=== PATIENT | female | born 1975 | race Caucasian/White ===

== ENCOUNTER 2016-09-07 12:29 | Emergency (ER) | payer MEDICARE ==
--- NOTE | 2016-09-07 13:39 | ER Document Report ---
ED Medical Screen (RME) - General Chief Complaint: Shoulder Pain Stated Complaint: BODY PAIN Time seen by provider: 13:38 Mode of Arrival: Ambulatory Information source: Patient TRAVEL OUTSIDE OF THE [place] IN LAST 30 DAYS: No - HPI Patient complains to provider of: BODY ACHES Onset: Other - TWO WEEKS Onset/Duration: Persistent Context: PATIENT HAS PREVIOUSLY BEEN ON LORAZEPAM 1 MG 3 TIMES A DAY. Patient states she has not taken any in the last 2 weeks. She has been trying to wean herself off of it. She has also been trying to wean herself off the Percocet 10 mg that she has been taking. She states that the pain has been so bad today that she has taken 2, 10 mg Percocet, and one 2 mg Dilaudid this morning which has not helped with the pain. she had an appointment this today with [facility] her primary care provider but she came here because she knew they would send her here for pain control anyway. Patient denies other symptoms at this time. Patient also sees Dr. Soni for pain management. Quality of pain: Achy, Throbbing Severity: Severe Pain Level: 5 Associated Symptoms: Body/muscle aches Exacerbated by: Denies Relieved by: Denies Similar symptoms previously: Yes Recently seen / treated by doctor: No - Related Data Smoking: Non-smoker Frequency of alcohol use: None Drug Abuse: None Pertinent History: LUPUS Allergies/Adverse Reactions: morphine Allergy (Verified 09/07/16 12:41) Past Medical History - General Last Menstrual Period: NA - Social History Chew tobacco use (# tins/day): No Frequency of alcohol use: None Drug Abuse: None Psychiatric Medical History: Reports: Hx Anxiety, Hx Attention Deficit Hyperactivity Disorder Past Surgical History: Reports: Hx Breast Surgery - reduction, Hx Hysterectomy - complete, Hx Orthopedic Surgery - rigth shoulder, Hx Tonsillectomy - Immunizations Hx Diphtheria, Pertussis, Tetanus Vaccination: No Physical Exam - Vital signs Vitals: Temp Pulse Resp BP Pulse Ox 97.9 F 74 18 135/86 H 98 09/07/16 12:34 09/07/16 12:34 09/07/16 12:34 09/07/16 12:34 09/07/16 12:34 Course - Vital Signs Vital signs: Temp Pulse Resp BP Pulse Ox 97.9 F 74 18 135/86 H 98 09/07/16 12:34 09/07/16 12:34 09/07/16 12:34 09/07/16 12:34 09/07/16 12:34
[2016-09-07] MEDS ORDERED: LORAZEPAM 1 MG TABLET PO ONE (13:47)
[2016-09-07] MEDS ORDERED: HYDROMORPHONE HCL INJ/PF 2 MG/ML AMPULE IM ONE (16:16)
[2016-09-07] MEDS ORDERED: ONDANSETRON HCL 8 MG TABLET PO ONE (16:17)
--- NOTE | 2016-09-07 16:34 | ER Document Report ---
ED General - General Chief Complaint: Shoulder Pain Stated Complaint: BODY PAIN Mode of Arrival: Ambulatory TRAVEL OUTSIDE OF THE [place] IN LAST 30 DAYS: No - HPI Patient complains to provider of: generalized aches Onset: Last week Onset/Duration: Persistent Quality of pain: Achy Severity: Moderate - Related Data Allergies/Adverse Reactions: morphine Allergy (Verified 09/07/16 12:41) Past Medical History - General Information source: Patient Last Menstrual Period: NA - Social History Smoking Status: Former Smoker Chew tobacco use (# tins/day): No Frequency of alcohol use: None Drug Abuse: None Family History: Reviewed & Not Pertinent Patient has suicidal ideation: No Patient has homicidal ideation: No Pulmonary Medical History: Reports: Hx Asthma Psychiatric Medical History: Reports: Hx Anxiety, Hx Attention Deficit Hyperactivity Disorder Past Surgical History: Reports: Hx Breast Surgery - reduction, Hx Hysterectomy, Hx Orthopedic Surgery - rigth shoulder, Hx Tonsillectomy - Immunizations Hx Diphtheria, Pertussis, Tetanus Vaccination: Yes Review of Systems - Review of Systems Constitutional: No symptoms reported EENT: No symptoms reported Cardiovascular: No symptoms reported Respiratory: No symptoms reported Gastrointestinal: No symptoms reported Genitourinary: No symptoms reported Female Genitourinary: No symptoms reported Musculoskeletal: No symptoms reported, Muscle pain. denies: Neck pain Skin: No symptoms reported Hematologic/Lymphatic: No symptoms reported Neurological/Psychological: No symptoms reported Physical Exam - Vital signs Vitals: Temp Pulse Resp BP Pulse Ox 97.9 F 74 18 135/86 H 98 09/07/16 12:34 09/07/16 12:34 09/07/16 12:34 09/07/16 12:34 09/07/16 12:34 Interpretation: Normal - General General appearance: Appears well, Alert - HEENT Head: Normocephalic, Atraumatic Eyes: Normal Pupils: PERRL - Respiratory Respiratory status: No respiratory distress Chest status: Nontender Breath sounds: Normal Chest palpation: Normal - Cardiovascular Rhythm: Regular Heart sounds: Normal auscultation Murmur: No - Abdominal Inspection: Normal Distension: No distension Bowel sounds: Normal Tenderness: Nontender Organomegaly: No organomegaly - Back Back: Normal, Nontender - Extremities General upper extremity: Normal inspection, Nontender, Normal color, Normal ROM , Normal temperature General lower extremity: Normal inspection, Nontender, Normal color, Normal ROM , Normal temperature, Normal weight bearing. No: Sailaja's sign - Neurological Neuro grossly intact: Yes Cognition: Normal Orientation: AAOx4 Sofia Coma Scale Eye Opening: Spontaneous Hewitt Coma Scale Verbal: Oriented Sofia Coma Scale Motor: Obeys Commands Sofia Coma Scale Total: 15 Speech: Normal Motor strength normal: LUE, RUE, LLE, RLE Sensory: Normal - Psychological Associated symptoms: Normal affect, Normal mood - Skin Skin Temperature: Warm Skin Moisture: Dry Skin Color: Normal Course - Re-evaluation Re-evalutation: 09/07/16 16:30 This is a 41-year-old female who presents to the emergency room today stating that she has bilateral shoulder generalized aching which is been ongoing for 4- 5 years. 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 She has an appointment tomorrow with her pain management doctor and is frustrated with the generalized discomfort that she is in. Patient is fairly knowledgeable about her disease state. She recognizes that she is already on significant amount of narcotics. She seems genuinely frustrated more in the nature in origin of her discomfort and is really looking more for a solution than strictly pain management. Throughout discussion in my assessment and inquired to the patient as to what was her expectation for her visit today. She was hoping to achieve some type of relief from the discomfort she recognizes that finding the long-term answers is more between her access developer and pain management doctor she has an appointment first thing in the morning. She is not seeking a prescription for pain medication. - Vital Signs Vital signs: Temp Pulse Resp BP Pulse Ox 97.9 F 74 18 135/86 H 98 09/07/16 12:34 09/07/16 12:34 09/07/16 12:34 09/07/16 12:34 09/07/16 12:34 Discharge - Discharge Clinical Impression: Muscle pain, fibromyalgia Disposition: HOME, SELF-CARE Additional Instructions: Follow-up with rheumatology 2-3 days. Follow-up with pain management doctor tomorrow morning as scheduled. Return to the emergency room for any change or worsening condition.
[2016-09-07 16:43] VITALS: BP 131/93
== END 2016-09-07 16:43 | disposition home or self-care (01) ==
LOC: ER 12:29
DX: M79.7 Fibromyalgia (principal); J45.909 Unspecified asthma, uncomplicated; Z88.5 Allergy status to narcotic agent; Z87.891 Personal history of nicotine dependence; Z79.891 Long term (current) use of opiate analgesic
CPT/HCPCS: 99283; 96372; J1170; A9270 ×2; S0119

== ENCOUNTER → 2016-11-12 | Day surgery (SDC) | payer MEDICARE | LOC: RAD 13:37 | PROVIDERS: ATTEND Orthopaedic Surgery | PROC: BP08ZZZ Plain Radiography of Right Shoulder (ICD-10-PCS; principal; 2016-11-12) | DX: R22.2 Localized swelling, mass and lump, trunk (principal); M25.511 Pain in right shoulder | CPT/HCPCS: 73222; 73040; 77002; A9576 ==

== ENCOUNTER 2016-12-16 05:16 | Day surgery (SDC) | payer MEDICARE ==
[2016-12-10 09:57] LABS: ABSOLUTE BASOPHILS # (AUTO) 0.1 10^3/uL (0.0-0.2); ABSOLUTE EOSINOPHILS # (AUTO) 0.2 10^3/uL (0.0-0.6); ABSOLUTE LYMPHOCYTES (AUTO) 3.1 10^3/uL (0.5-4.7); ABSOLUTE MONOCYTES (AUTO) 0.7 10^3/uL (0.1-1.4); ABSOLUTE NEUT (AUTO) 6.2 10^3/uL (1.7-8.2); BASOPHILS % (AUTO) 0.5 % (0-2); HEMATOCRIT 39.3 % (36.0-47.0); HEMOGLOBIN 13.2 g/dL (12.0-15.5); HGB HCT DIFFERENCE 0.3; LYMPHOCYTES % (AUTO) 30.3 % (13-45); MEAN CORPUSCULAR HGB CONC 33.7 g/dL (32.0-36.0); MEAN CORPUSCULAR VOLUME 89 fl (80-97); MONOCYTES % (AUTO) 7.1 % (3-13); RED BLOOD COUNT 4.42 10^6/uL (3.72-5.28); RED CELL DISTRIBUTION WIDTH 12.2 % (11.5-14.0); SEGMENTED NEUTROPHILS % (AUTO) 60.1 % (42-78); WHITE BLOOD COUNT 10.3 10^3/uL (4.0-10.5)
[2016-12-10 10:03] LABS: APPEARANCE,URINE SLIGHTLY-CLOUDY; BILIRUBIN,URINE NEGATIVE (NEGATIVE); GLUCOSE, URINE NEGATIVE (NEGATIVE); KETONES,URINE NEGATIVE (NEGATIVE); LEUKOCYTE ESTERASE,URINE NEGATIVE (NEGATIVE); NITRITE,URINE NEGATIVE (NEGATIVE); PROTEIN,URINE NEGATIVE (NEGATIVE); URINE SPECIFIC GRAVITY 1.013; UROBILINOGEN,URINE NEGATIVE mg/dL (<2.0)
[2016-12-10 10:24] LABS: ANION GAP 11 (5-19); BLOOD UREA NITROGEN 13 mg/dL (7-20); CALCIUM 9.2 mg/dL (8.4-10.2); CARBON DIOXIDE 30 mmol/L (22-30); CHLORIDE 100 mmol/L (98-107); GLUCOSE 90 mg/dL (75-110); POTASSIUM 3.9 mmol/L (3.6-5.0); SODIUM 141.1 mmol/L (137-145)
--- NOTE | 2016-12-10 22:27 | EKG REPORT ---
SEVERITY:- BORDERLINE ECG - SINUS RHYTHM PROBABLE LEFT ATRIAL ABNORMALITY : Confirmed by: Adina Boss MD 10-Dec-2016 22:26:40
[~2016-12-16 05:16] MED LIST: CEFAZOLIN 2 GM/D5W RTU 2 GM/50 ML RTUPB IV PRN; LACTATED RINGERS 1000 ML IV PRN; LIDOCAINE 0.5% INJ-PF (5 MG/ML) 50 ML SDV SUBCUT PRN; RINGERS SOLUTION,LACTATED 1,000 ML IV PRN
[2016-12-16] MEDS ORDERED: BUPIVACAINE HCL 0.25 % INJ/PF (2.5 MG/1 ML) 30 ML VIAL ONE (05:50)
[2016-12-16] MEDS ORDERED: EPINEPHRINE INJ/PF 1 MG/1 ML AMPULE ONE ×2 (05:50→09:39)
[2016-12-16] MEDS ORDERED: IBUPROFEN INJ 800 MG/8 ML VIAL IV ONE (07:08)
[2016-12-16] MEDS ORDERED: FENTANYL CITRATE INJ/PF 250 MCG/5 ML AMPULE ONE (07:08)
[2016-12-16] MEDS ORDERED: DEXMEDETOMIDINE INJ 80 MCG/20 ML VIAL IV ONE (07:08)
[2016-12-16] MEDS ORDERED: EPHEDRINE SULFATE INJ 50 MG/1 ML AMPULE ONE (07:08)
[2016-12-16] MEDS ORDERED: MIDAZOLAM 2 MG/2 ML INJ ONE (07:08)
[2016-12-16] MEDS ORDERED: PROPOFOL INJ 200 MG/20 ML VIAL IV ONE (07:08)
[2016-12-16] MEDS ORDERED: OXYCODONE-ACETAMINOPHEN 5-325 MG TABLET PO PRN ×2 (10:45)
[2016-12-16] MEDS ORDERED: DIPHENHYDRAMINE HCL 50 MG/ML VIAL IV PRN (10:45)
[2016-12-16] MEDS ORDERED: FENTANYL CITRATE INJ/PF 100 MCG/2 ML AMPUL IV PRN ×3 (10:45)
[2016-12-16] MEDS ORDERED: PROMETHAZINE HCL INJ 25 MG/1 ML VIAL IV PRN ×2 (10:45)
[2016-12-16] MEDS ORDERED: MEPERIDINE HCL/PF INJ 25 MG/1 ML DISP.SYRIN IV PRN (10:45)
[2016-12-16] MEDS ORDERED: ONDANSETRON HCL INJ/PF 4 MG/2 ML SDV IV PRN (10:45)
[2016-12-16] MEDS ORDERED: FENTANYL CITRATE INJ/PF 100 MCG/2 ML AMPUL ONE (11:15)
--- NOTE | 2016-12-16 11:27 | Operative Report ---
Operative Report DATE OF SURGERY: 12/16/16 PREOPERATIVE DIAGNOSIS: Right rotator cuff tear, A.C. joint arthropathy, small SLAP tear POSTOPERATIVE DIAGNOSIS: Same OPERATION: Right shoulder cystoscopy with rotator cuff repair, distal clavicle excision, open biceps tenodesis SURGEON: TENISHA COOLEY ANESTHESIA: GA COMPLICATIONS: None ESTIMATED BLOOD LOSS: 15 mL INTRAOPERATIVE FINDINGS: As above PROCEDURE: IMPLANTS: Arthrex 8 x 23 bio composite screw and one 4.75 bio composite swivel lock DESCRIPTION OF PROCEDURE: Patient was brought to the operating room placed in supine position. After successfully induced and intubated the patient patient was placed in the beachchair position the head and endotracheal tube was secured appropriately. The right shoulder was prepped and draped in a normal surgical fashion. A timeout was done identifying the right shoulder as the correct site. After inflating the glenohumeral joint with sterile saline solution an 11 blade was used to establish the posterior portal. The arthroscope was introduced and return of fluid was seen showing that we successfully penetrated the glenohumeral joint. With the use of spinal needle we're able to agustín the anterior portal and using an 11 blade able to establish anterior portal. A cannula was introduced through the anterior portal. At this point diagnostic scope was done. Have a small SLAP tear and degenerative tearing of the anchor of the long head of the biceps. The rotator cuff tear was a high-grade partial thickness supraspinatus tendon tear. I completed the tear using a 4.0mm shaver A lateral portal was established 11 blade. 4.0mm shaver was introduced and was used to prepare the tear and the frontal bone for preparation of anchor placement. Once I was satisfied with the preparation I then redirected my scope into the subacromial space. No formal bursectomy using a shaver and radio frequency ablator. Able to identify the cuff tear and the subacromial space. A percutaneous incision was then just adjacent to the acromion on the lateral aspect. Through this percutaneous hole the awl was used to prepare the hole for an anchor. [place] was percutaneously sent flushed with the bone just adjacent to the articular margin. I used a fiber tape and passed it into the posterior aspect of the cuff to added to my repair. Sutures were passed through the anterior portal for proper suture management. With the use of the scorpion and I proceeded to pass the sutures through the rotator cuff tendon with proper suture management was able to pass the strands either through percutaneous hole or the anterior portal. Once I was satisfied with placement of all my sutures I then proceeded to do my arthroscopic knots. At this point the strands were used to do our lateral row. Bicomposite show out was used and the lateral aspect of the humerus was then cleaned off with a shaver and electrocautery. Once identified once I was replacement I proceeded to use my awl to do my hole. This this point the sutures were adequately tensioned and subluxed for inserted and secured securing and increasing the footprint of the rotator cuff repair. Remaining strands were cut with the arthroscopic cutter. At this point I addressed the acromioclavicular joint. I use radio frequency ablator to expose both ends. Anterior portal I used 5.5mm barrel bur to do revision distal clavicle excision. Pictures were taken showing the space created from the resection. Final pictures were taking showing my repair. At this point fluid from the shoulder was removed camera and instruments were all removed. At this point I addressed the subpectoralis biceps tenodesis by doing a 2 inch incision adjacent to the axillary fold. Skin knife was used for the initial dissection but Bovie was used for hemostasis. Metzenbaum scissors was used to incise the muscular tendinous fascial layer. Blunt dissection with a 90 clamp and finger was used to capture the long head of the biceps which was tenotomized arthroscopically. I used a fiber loop to secure the muscular tendinous portion and 2 cm distal to that. The FiberWire strands were passed through the titanium button. I used a 4.0 mm spade tip guidepin to then drilled a balloon pilot hole in the proximal cortex of the humerus. This was removed and then the button was placed intramedullary and flipped securing the biceps into the anterior portion of the humerus. I cinched the FiberWire down and tied half is not just to secure the biceps further. FiberWire scissors was used to cut the remaining strands. At this point 0 Vicryl was used to approximate the subcutaneous tenderness fat and 3-0 nylon was used to close the wound. I proceeded to close my portal sites with 3-0 nylon. Xeroform 4 x 4 dressing followed by ABDs pads and Medipore tape was applied. Patient was placed in a sling and returned to supine position where he was successfully extubated and taken to PACU in stable condition.
--- NOTE | 2016-12-16 11:40 | PDOC DISCHARGE SUMMARY ---
Discharge Summary (SDC) - Discharge Final Diagnosis: Right shoulder rotator cuff repair, distal clavicle excision, biceps tenodesis Date of Surgery: 12/16/16 Discharge Date: 12/16/16 Condition: Good Treatment or Instructions: Patient is instructed to follow up in 10-14 days. Patient instructed to remove dressing in 4 days then can shower and apply Band- Aids as needed. Patient to wear sling for comfort but okay to remove for shower and pendulum exercises. Pendulum exercises are instructed to be done 3 times a day ideally with breakfast, lunch, dinners and showers. Patient instructed to call if there is any signs of redness or drainage fevers or chills. Prescriptions: Oxycodone HCl/Acetaminophen [Percocet 5-325 mg Tablet] 1 - 2 tab PO ASDIR PRN # 60 tablet PRN Reason: Discharge Diet: As Tolerated Respiratory Treatments at Home: Deep Breathing/Coughing Discharge Activity: No Driving, No Lifting/Push/Pulling Home Care Assistance: None Needed Report the Following to Your Physician Immediately: Shortness of Breath, Vomiting, Increase in Pain, Fever over 101 Degrees, Unusual Bleeding, Redness, Swelling, Warmth, Drainage-Green, Drainage-Foul Smelling, Numbness, Visual Disturbance, Seizure
[2016-12-16] MEDS ORDERED: METOCLOPRAMIDE HCL INJ/PF 10 MG/2 ML SDV ONE (11:47)
[2016-12-16] MEDS ORDERED: LIDOCAINE 2% INJ-PF (20 MG/ML) 10 ML AMPUL ONE (11:47)
[2016-12-16] MEDS ORDERED: ONDANSETRON HCL INJ/PF 4 MG/2 ML SDV ONE (11:47)
[2016-12-16] MEDS ORDERED: DEXAMETHASONE SOD PHOSPHATE INJ 4 MG/1 ML VIAL ONE (11:47)
[2016-12-16] MEDS ORDERED: SUCCINYLCHOLINE CHLORIDE INJ 200 MG/10 ML VIAL ONE (11:47)
[2016-12-16] MEDS ORDERED: ACETAMINOPHEN 100 ML IV ONE (11:50)
[2016-12-16 13:36] VITALS: BP 129/75
== END 2016-12-16 13:25 | disposition home or self-care (01) ==
LOC: OROUT 05:16
PROVIDERS: ATTEND Orthopaedic Surgery
PROC: 0PB94ZZ Excision of Right Clavicle, Percutaneous Endoscopic Approach (ICD-10-PCS; 2016-12-16)
PROC: 0LM30ZZ Reattachment of Right Upper Arm Tendon, Open Approach (ICD-10-PCS; 2016-12-16)
PROC: 0LM14ZZ Reattachment of Right Shoulder Tendon, Percutaneous Endoscopic Approach (ICD-10-PCS; principal; 2016-12-16 07:30)
DX: S43.431S Superior glenoid labrum lesion of right shoulder, sequela (principal); X58.XXXS Exposure to other specified factors, sequela; M75.111 Incomplete rotator cuff tear or rupture of right shoulder, not specified as traumatic; G89.4 Chronic pain syndrome; L93.0 Discoid lupus erythematosus; Z85.3 Personal history of malignant neoplasm of breast
CPT/HCPCS: 93005; 36415; 85025; 80048; 81001; 71020; 93010; 29827; 29824; 24340; C1713 ×4; J2250; J1100; J0171; J3010 ×2; J3490 ×3; J2765; A9270; J0330; J2405; J2704; J0690; J0131; J1741; 1630

== ENCOUNTER 2019-04-17 05:42 | Day surgery (SDC) | payer MEDICARE, OTHER ==
[2019-04-10 09:08] LABS: ABSOLUTE EOSINOPHILS # (AUTO) 0.1 10^3/uL (0.0-0.6); ABSOLUTE LYMPHOCYTES (AUTO) 1.4 10^3/uL (0.5-4.7); ABSOLUTE MONOCYTES (AUTO) 0.4 10^3/uL (0.1-1.4); ABSOLUTE NEUT (AUTO) 2.7 10^3/uL (1.7-8.2); BASOPHILS % (AUTO) 0.7 % (0-2); EOSINOPHILS % (AUTO) 1.4 % (0-6); HEMATOCRIT 36.4 % (36.0-47.0); HEMOGLOBIN 12.6 g/dL (12.0-15.5); MEAN CORPUSCULAR HEMOGLOBIN 30.3 pg (27.0-33.4); MEAN CORPUSCULAR HGB CONC 34.6 g/dL (32.0-36.0); MEAN CORPUSCULAR VOLUME 88 fl (80-97); MONOCYTES % (AUTO) 8.2 % (3-13); PLATELET COUNT 235 10^3/uL (150-450); RED BLOOD COUNT 4.15 10^6/uL (3.72-5.28); RED CELL DISTRIBUTION WIDTH 12.4 % (11.5-14.0); SEGMENTED NEUTROPHILS % (AUTO) 58.7 % (42-78); TOTAL CELLS COUNTED % (AUTO) 100 %; WHITE BLOOD COUNT 4.7 10^3/uL (4.0-10.5)
[2019-04-10 09:32] LABS: ANION GAP 6 (5-19); BLOOD UREA NITROGEN 9 mg/dL (7-20); CARBON DIOXIDE 30 mmol/L (22-30); CHLORIDE 101 mmol/L (98-107); GLUCOSE 74 mg/dL (75-110); POTASSIUM 4.4 mmol/L (3.6-5.0)
--- NOTE | 2019-04-10 10:12 | RADIOLOGY REPORT (SQ) ---
EXAM DESCRIPTION: CHEST PA/LATERAL COMPLETED DATE/TIME: 04/10/2019 9:01 am REASON FOR STUDY: PRE-OP COMPARISON: None. EXAM PARAMETERS: NUMBER OF VIEWS: two views TECHNIQUE: Digital Frontal and Lateral radiographic views of the chest acquired. RADIATION DOSE: NA LIMITATIONS: none FINDINGS: LUNGS AND PLEURA: No opacities, masses or pneumothorax. No pleural effusion. MEDIASTINUM AND HILAR STRUCTURES: No masses or contour abnormalities. HEART AND VASCULAR STRUCTURES: Heart normal size. No evidence for failure. BONES: No acute findings. HARDWARE: None in the chest. OTHER: No other significant finding. IMPRESSION: NO SIGNIFICANT RADIOGRAPHIC FINDING IN THE CHEST. TECHNICAL DOCUMENTATION: JOB ID: [id number] [employer]- All Rights Reserved Reading location - IP/workstation name: [email or web address]
--- NOTE | 2019-04-10 12:41 | EKG REPORT ---
SEVERITY:- ABNORMAL ECG - SINUS RHYTHM NONSPECIFIC ANTERIOR ST-T CHANGES : Confirmed by: Noah Calderon MD 10-Apr-2019 12:40:56
[~2019-04-17 05:42] MED LIST changes: +BUPIVACAINE HCL 0.5 % INJ/PF 30 ML SDV ONE; -CEFAZOLIN 2 GM/D5W RTU 2 GM/50 ML RTUPB IV PRN; +CEFAZOLIN SODIUM 2 GM in DEXTROSE 5%-WATER 100 ML IV PRN; +EPINEPHRINE INJ/PF 1 MG/1 ML AMPULE ONE; +LIDOCAINE 1% INJ-PF (10 MG/ML) 30 ML SDV ONE; -RINGERS SOLUTION,LACTATED 1,000 ML IV PRN
[2019-04-17] MEDS ORDERED: FENTANYL CITRATE INJ/PF 100 MCG/2 ML AMPUL ONE (06:16)
[2019-04-17] MEDS ORDERED: MIDAZOLAM 2 MG/2 ML INJ ONE (06:16)
[2019-04-17] MEDS ORDERED: FENTANYL CITRATE INJ/PF 250 MCG/5 ML AMPULE ONE (06:16)
[2019-04-17] MEDS ORDERED: ONDANSETRON HCL INJ/PF 4 MG/2 ML SDV ONE (06:16)
[2019-04-17] MEDS ORDERED: EPHEDRINE SULFATE INJ 50 MG/1 ML AMPULE ONE (06:16)
[2019-04-17] MEDS ORDERED: DEXAMETHASONE SOD PHOSPHATE INJ 4 MG/1 ML VIAL ONE ×2 (06:16→12:47)
[2019-04-17] MEDS ORDERED: PROPOFOL INJ 200 MG/20 ML VIAL IV ONE (06:17)
[2019-04-17] MEDS ORDERED: LIDOCAINE 0.5% INJ-PF (5 MG/ML) 50 ML SDV ONE (06:27)
[2019-04-17] MEDS ORDERED: ALBUTEROL SULFATE 0.083% NEB 2.5 MG/3 ML AMPUL NEB ONE (06:32)
[2019-04-17] MEDS ORDERED: FENTANYL CITRATE INJ/PF 100 MCG/2 ML AMPUL IV PRN ×3 (08:26)
[2019-04-17] MEDS ORDERED: PROMETHAZINE HCL INJ 25 MG/1 ML VIAL IV PRN ×2 (08:26)
[2019-04-17] MEDS ORDERED: ONDANSETRON HCL INJ/PF 4 MG/2 ML SDV IV PRN ×2 (08:26→10:38)
[2019-04-17] MEDS ORDERED: MEPERIDINE HCL/PF INJ 25 MG/1 ML DISP.SYRIN IV PRN (08:26)
[2019-04-17] MEDS ORDERED: DIPHENHYDRAMINE HCL 50 MG/ML VIAL IV PRN (08:26)
[2019-04-17] MEDS ORDERED: ROPIVACAINE HCL 0.5% INJ/PF (5 MG/1 ML) 30 ML SDV ONE (10:30)
[2019-04-17] MEDS ORDERED: LIDOCAINE 2%/EPINEPHRINE INJ 20 ML VIAL ONE (10:30)
[2019-04-17] MEDS ORDERED: LIDOCAINE 2% INJ (20 MG/ML) 20 ML MDV ONE (10:30)
[2019-04-17] MEDS ORDERED: ACETAMINOPHEN 1,000 MG/100 ML RTUPB IV ONE (10:33)
[2019-04-17] MEDS ORDERED: OXYCODONE-ACETAMINOPHEN 5-325 MG TABLET PO PRN (10:38)
[2019-04-17] MEDS ORDERED: HYDROMORPHONE HCL INJ/PF 2 MG/ML AMPULE IV PRN (10:38)
--- NOTE | 2019-04-17 10:39 | Discharge Summary ---
Discharge Summary (SDC) - Discharge Final Diagnosis: Right shoulder rotator cuff tear Date of Surgery: 04/17/19 Discharge Date: 04/17/19 Condition: Good Treatment or Instructions: Schedule Follow Up w/ Dr. Tray Núñez @ [facility] for Surgery to be seen in 10-14 days or as scheduled [place]: [place]: [place]: May remove dressing on postop day #3, keep incision covered and dry. Cryocuff to shoulder May begin pendulum exercises along w/ hand, wrist and elbow range of motion 4x per day or as tolerated. May remove sling for hygiene purposes otherwise continue it at all times. Stool softener of choice when on pain medication. USE OF [id number]-VNA-IHOLRYI IBUPROFEN: Ibuprofen (Advil, Nuprin, Medipren, Motrin IB) is a medication for fever and pain control. In addition, it has anti- inflammatory effects which may be beneficial, especially in the treatment of injuries. It's best to take ibuprofen with food. Persons with ulcer disease or allergy to aspirin should notify their physician of this before taking ibuprofen. Ibuprofen can be given every four to six hours, for a total of four doses daily. Age Pain or fever dose Antiinflammatory dose 6-8 yr 200 mg (1 tab) 200 mg (1 tab) 9-11 yr 200 mg (1 tab) 200-400 mg (1-2 tab) 11-14 yr 200-400 mg (1-2 tab) 400 mg (2 tab) 15-adult 400 mg (2 tab) 600 mg (3 tab) ORAL NARCOTIC MEDICATION: You have been given a prescription for pain control. This medication is a narcotic. It's best taken with food, as nausea can result if taken on an empty stomach. Don't operate machinery or drive within six hours of taking this medic ation. Do not combine this medicine with alcohol, or with any medication which can cause sedation (such as cold tablets or sleeping pills) unless you get permission from the physician. Narcotics tend to cause constipation. If possible, drink plenty of fluids and eat a diet high in fiber and fruits. Please be aware that prescription narcotics also have the potential for abuse. People become addicted to these medications because of the general sense of wellbeing that they induce. This feeling along with a significant reduction in tension, anxiety, and aggression provides a stimulating seductive quality to these drugs. Once your pain is under control, we encourage you to discard your unused narcotics. Prescriptions: Ketorolac Tromethamine [Toradol 10 mg Tablet] 10 mg PO Q8HP PRN #12 tablet PRN Reason: Hydromorphone HCl [Dilaudid 2 mg Tablet] 2 mg PO Q6 PRN #25 tablet PRN Reason: Referrals: BRISEIDA HERNANDEZ, [employer] [Primary Care Provider] - Discharge Diet: As Tolerated Respiratory Treatments at Home: Deep Breathing/Coughing, Incentive Spirometer Discharge Activity: No Lifting Over 10 Pounds, No Lifting/Push/Pulling Report the Following to Your Physician Immediately: Unusual Bleeding, Redness, Swelling, Warmth, Increased Soreness
[2019-04-17] MEDS: FENTANYL CITRATE INJ/PF 100 MCG/2 ML AMPUL ONE ×2 (10:40→10:45)
--- NOTE | 2019-04-17 10:46 | Operative Report ---
Operative Report DATE OF SURGERY: 04/17/19 PREOPERATIVE DIAGNOSIS: Right shoulder rotator cuff tear POSTOPERATIVE DIAGNOSIS: Same OPERATION: Right shoulder arthroscopy with rotator cuff repair, acromioplasty, subacromial decompression SURGEON: HAMLET PANDEY ANESTHESIA: GA COMPLICATIONS: None ESTIMATED BLOOD LOSS: Minimal PROCEDURE: Indication for above procedure: 43-year-old female with long-standing his right shoulder discomfort. Patient had 2 previous shoulder arthroscopy but continued to have discomfort especially with overhead activity. Patient MRI confirming recurrent rotator cuff tear. Attempted conservative measures including therapy, anti-inflammatories and injections without resolution of patient's symptoms. At that point decision was made to proceed with operative intervention. Risks and benefits were explained patient verbalized understanding consented for surgical procedure. Procedure In Detail: Patient was seen and evaluated in the preoperative holding area. The RIGHT upper extremity was initialized and marked. Patient received 2g of Ancef IV for bacterial prophylaxis. Patient was taken back to the operative room where transferred to the operative table and placed under general anesthesia. Once they were adequately anesthetized patient placed in the beachchair position. Cervical spine was placed in neutral position all bony prominences were padded including nonoperative upper extremity and bilateral lower extremity. A surgical team debriefing was performed ensuring all instrumentation was tone ilable, the surgical procedure was discussed with possible concerns reviewed. The upper extremity was prepped with ChloraPrep draped in a sterile fashion. A timeout was done identifying correct patient, procedure and extremity everyone in attendance agree with this and verbalized no concerns. Posterior lateral portal was established arthroscope introduced into the glenohumeral joint. Via translation anterior portal established. Diagnostic arthroscopy demonstrated labral fraying previous biceps tenotomy confirmed. Subscapularis remained intact. There was full-thickness rotator cuff tear along the central portion of the rotator cuff with anterior posterior fibers intact. Patient had grade 2-3 degenerative changes of the glenoid no degenerative changes of the humeral head were appreciated. Glenohumeral synovectomy was performed and the labrum debrided to a stable base. Arthroscope was then introduced subacromial space lateral portal was established. Subacromial decompression was performed along with revision acromioplasty removing a small amount of remaining acromial spur. A cannula was placed into the lateral portal exploration of the rotator cuff demonstrated full-thickness tear along the central portion confirming the intact anterior and posterior fibers previous sutures and anchor were identified and loose and subsequently removed. After removal of the ankle there is too large bone defect where the rotator cuff was deficient along with a L-shaped type rotator cuff tear. The tuberosity was debrided from any remaining soft tissue. The L-shaped portion was repaired with [id number] marginal convergence sutures the second marginal convergence suture stitches were not cut to allow incorporation into the lateral row. Unfortunately given the intact anterior and posterior fibers there was deficient bone to perform lateral row at the optimal position additionally placement of a lateral row anchor posterior anterior would likely be insufficient to adequately cover the tuberosity and humeral head. Thus decision was made to place a 8 mm tenodesis screw into the lateral row defect. At that point decision was made to proceed with fixation into the lateral row. Fiber tape horizontal mattress suture was placed into the rotator cuff the awl was placed anterior to the biceps tenodesis screw. The previous marginal convergence FiberWire and fiber tape anchors were placed into the swivel lock anchor and tensioned bringing the rotator cuff firmly down to the tuberosity and swivel lock secured. At completion stability of the swivel lock was confirmed by pulling gentle pressure on the retaining sutures which were then removed. All sutures were then cut. There was adequate fixation of the rotator cuff down to the tuberosity with passive range of motion there was no tension on the rotator cuff and it did move as a unit. Final arthroscopy pictures were then obtained. Skin was closed with interrupted nylon suture. Wound was dressed Xeroform 4 x 4's and ABDs and secured with perforated tape. Patient was placed in abduction sling. Sponge counts, instrument counts, needle counts were correct. Patient was then awoken from anesthesia. Transferred from the operating room table to the operating room stretcher. There was no intraoperative complications patient tolerated procedure well stable to PACU. Postoperative plan: Patient follow-up the office in 2 weeks at which point will review arthroscopy pictures. Patient will begin physical therapy 6 weeks postoperatively as per conservative rotator cuff repair protocol.
[2019-04-17] MEDS ORDERED: SUCCINYLCHOLINE CHLORIDE INJ 200 MG/10 ML VIAL ONE (12:47)
[2019-04-17] MEDS ORDERED: PHENYLEPHRINE HCL INJ/PF 10 MG/1 ML SDV ONE (12:47)
[2019-04-17] MEDS ORDERED: KETOROLAC TROMETHAMINE 60 MG/2 ML SDV ONE (12:47)
[2019-04-17 13:07] VITALS: BP 122/80
== END 2019-04-17 12:50 | disposition home or self-care (01) ==
LOC: OROUT 05:42
PROVIDERS: ATTEND Orthopaedic Surgery
DX: M75.101 Unspecified rotator cuff tear or rupture of right shoulder, not specified as traumatic (principal); M32.9 Systemic lupus erythematosus, unspecified; Z85.3 Personal history of malignant neoplasm of breast; G89.4 Chronic pain syndrome; Z87.891 Personal history of nicotine dependence; Z79.899 Other long term (current) drug therapy
CPT/HCPCS: 93005; 36415; 85025; 80048; 71046; 93010; 94640; 01630; 29827; 29826; C1713 ×3; J2795; J2250; J3490 ×5; J0690; J1100; J0171; J1885; J3010 ×2; J2370; J0330; J2405; J7060; J2704; J0131; 1630

== ENCOUNTER 2019-06-26 23:24 | Observation (INO) | payer OTHER, MEDICARE ==
[2019-06-26 23:59] LABS: ABSOLUTE BASOPHILS # (AUTO) 0.1 10^3/uL (0.0-0.2); ABSOLUTE EOSINOPHILS # (AUTO) 0.1 10^3/uL (0.0-0.6); ABSOLUTE LYMPHOCYTES (AUTO) 2.3 10^3/uL (0.5-4.7); ABSOLUTE MONOCYTES (AUTO) 0.4 10^3/uL (0.1-1.4); ABSOLUTE NEUT (AUTO) 2.7 10^3/uL (1.7-8.2); EOSINOPHILS % (AUTO) 1.9 % (0-6); HEMATOCRIT 36.8 % (36.0-47.0); HEMOGLOBIN 12.9 g/dL (12.0-15.5); LYMPHOCYTES % (AUTO) 40.7 % (13-45); MEAN CORPUSCULAR HGB CONC 34.9 g/dL (32.0-36.0); MEAN CORPUSCULAR VOLUME 86 fl (80-97); MONOCYTES % (AUTO) 7.7 % (3-13); PLATELET COUNT 272 10^3/uL (150-450); RED BLOOD COUNT 4.28 10^6/uL (3.72-5.28); RED CELL DISTRIBUTION WIDTH 12.3 % (11.5-14.0); SEGMENTED NEUTROPHILS % (AUTO) 48.7 % (42-78); TOTAL CELLS COUNTED % (AUTO) 100 %; WHITE BLOOD COUNT 5.5 10^3/uL (4.0-10.5)
[2019-06-27 00:04] LABS: APPEARANCE,URINE CLEAR; BILIRUBIN,URINE NEGATIVE (NEGATIVE); COLOR,URINE YELLOW; GLUCOSE, URINE NEGATIVE (NEGATIVE); KETONES,URINE TRACE mg/dL (NEGATIVE); LEUKOCYTE ESTERASE,URINE NEGATIVE (NEGATIVE); NITRITE,URINE NEGATIVE (NEGATIVE); PROTEIN,URINE NEGATIVE (NEGATIVE); URINE SPECIFIC GRAVITY 1.011; UROBILINOGEN,URINE NEGATIVE mg/dL (<2.0)
[2019-06-27 00:07] LABS: ALBUMIN 3.7 g/dL (3.5-5.0); ALKALINE PHOSPHATASE 60 U/L (38-126); ANION GAP 11 (5-19); ASPARTATE AMINO TRANSFERASE 27 U/L (14-36); BILIRUBIN,DIRECT 0.2 mg/dL (0.0-0.4); BILIRUBIN,TOTAL 0.4 mg/dL (0.2-1.3); BLOOD UREA NITROGEN 12 mg/dL (7-20); CALCIUM 9.4 mg/dL (8.4-10.2); CARBON DIOXIDE 22 mmol/L (22-30); CHLORIDE 104 mmol/L (98-107); GLUCOSE 121 mg/dL (75-110); POTASSIUM 3.4 mmol/L (3.6-5.0); TOTAL PROTEIN 6.3 g/dL (6.3-8.2)
--- NOTE | 2019-06-27 00:07 | ER Document Report ---
ED GI/ - General Chief Complaint: Abdominal Pain Stated Complaint: UPPER RIGHT QUADRANT PAIN Time Seen by Provider: 06/26/19 23:55 Notes: Patient is a 43-year-old female presents to the emergency department for right upper quadrant abdominal pain. States pain started this evening. States she was also very nauseated and had one episode of vomiting. Patient's denying any dysuria or vaginal discharge. She was given 30 mg of Toradol and 4 mg of Zofran by EMS. States her pain is somewhat controlled she is no longer nauseous. Patient voices she had total hysterectomy as well as an appendectomy. Medications: Trazodone, omeprazole, gabapentin, Celebrex, tizanidine, estradol Patient voices an allergy to morphine. TRAVEL OUTSIDE OF THE [place] IN LAST 30 DAYS: No - Related Data Allergies/Adverse Reactions: morphine Allergy (Verified 04/17/19 06:36) Urticaria Past Medical History - General Information source: Patient - Social History Smoking Status: Never Smoker Family History: Reviewed & Not Pertinent Patient has suicidal ideation: No Patient has homicidal ideation: No - Past Medical History Cardiac Medical History: Denies: Hx Coronary Artery Disease, Hx Heart Attack, Hx Hypertension Pulmonary Medical History: Reports: Hx Asthma, Hx Pneumonia Denies: Hx Bronchitis, Hx COPD Neurological Medical History: Denies: Hx Cerebrovascular Accident, Hx Seizures Musculoskeletal Medical History: Reports Hx Arthritis Psychiatric Medical History: Reports: Hx Anxiety, Hx Attention Deficit Hyperactivity Disorder Past Surgical History: Reports: Hx Breast Surgery - reduction, Hx Hysterectomy, Hx Orthopedic Surgery - right shoulder, Hx Tonsillectomy - Immunizations Hx Diphtheria, Pertussis, Tetanus Vaccination: Yes Review of Systems - Review of Systems Constitutional: denies: Fever EENT: No symptoms reported Cardiovascular: No symptoms reported Respiratory: No symptoms reported Gastrointestinal: See HPI Genitourinary: No symptoms reported Female Genitourinary: No symptoms reported Musculoskeletal: No symptoms reported Skin: No symptoms reported Hematologic/Lymphatic: No symptoms reported Neurological/Psychological: No symptoms reported Physical Exam - Vital signs Vitals: Resp BP Pulse Ox 13 136/86 H 98 06/26/19 23:34 06/26/19 23:34 06/26/19 23:34 - Notes Notes: GENERAL: Alert, interacts well. No acute distress. HEAD: Normocephalic, atraumatic. EYES: Pupils equal, round, and reactive to light. Extraocular movements intact. ENT: Oral mucosa moist, tongue midline. NECK: Full range of motion. Supple. Trachea midline. LUNGS: Clear to auscultation bilaterally, no wheezes, rales, or rhonchi. No respiratory distress. HEART: Regular rate and rhythm. No murmur ABDOMEN: Soft, right upper quadrant abdominal pain noted. Otherwise abdominal exam benign. Non-distended. Bowel sounds present in all 4 quadrants. EXTREMITIES: Moves all 4 extremities spontaneously. No edema, normal radial and dorsalis pedis pulses bilaterally. No cyanosis. BACK: no cervical, thoracic, lumbar midline tenderness. No saddle anesthesia, normal distal neurovascular exam. No CVA tenderness noted bilaterally. NEUROLOGICAL: Alert and oriented x3. Normal speech. cranial nerves II through XII grossly intact PSYCH: Normal affect, normal mood. SKIN: Warm, dry, normal turgor. No rashes or lesions noted. Course - Re-evaluation Re-evalutation: 06/27/19 00:08 Initially patient's blood pressure was noted to be 136 systolic. Patient voices her blood pressure is typically "in the 100s." Patient denies lightheadedness, dizziness, weakness, chest pain, shortness of breath. Upon my initial assessment patient's blood pressure was noted to be 98 systolic. 06/27/19 02:03 Laboratory 06/26/19 06/26/19 06/26/19 23:36 23:44 23:44 WBC 5.5 RBC 4.28 Hgb 12.9 Hct 36.8 MCV 86 MCH 30.0 MCHC 34.9 RDW 12.3 Plt Count 272 Lymph % (Auto) 40.7 [place] % (Auto) 7.7 Eos % (Auto) 1.9 Baso % (Auto) 1.0 Absolute Neuts (auto) 2.7 Absolute Lymphs (auto) 2.3 Absolute Monos (auto) 0.4 Absolute Eos (auto) 0.1 Absolute Basos (auto) 0.1 Seg Neutrophils % 48.7 Sodium 137.0 Potassium 3.4 L Chloride 104 Carbon Dioxide 22 Anion Gap 11 BUN 12 Creatinine 0.71 Est GFR ( Amer) > 60 Est GFR (MDRD) Non-Af > 60 Glucose 121 H Calcium 9.4 Total Bilirubin 0.4 Direct Bilirubin 0.2 Neonat Total Bilirubin Not Reportable Neonat Direct Bilirubin Not Reportable Neonat Indirect Bili Not Reportable AST 27 ALT 13 Alkaline Phosphatase 60 Total Protein 6.3 Albumin 3.7 Lipase 157.3 Urine Color YELLOW Urine Appearance CLEAR Urine pH 6.0 Ur Specific [place] 1.011 Urine Protein NEGATIVE Urine Glucose (UA) NEGATIVE Urine Ketones TRACE H Urine Blood NEGATIVE Urine Nitrite NEGATIVE Urine Bilirubin NEGATIVE Urine Urobilinogen NEGATIVE Ur Leukocyte Esterase NEGATIVE Urine WBC (Auto) 1 Urine RBC (Auto) 0 Squamous Epi Cells Auto 2 Urine Mucus (Auto) RARE Urine Ascorbic Acid NEGATIVE Urine HCG, Qual NEGATIVE Abdomen Ultrasound 06/27/19 00:05 IMPRESSION: 1. Significant distention of the common bile duct (11 mm), suggesting distal common bile duct stone or stricture. 2. Multiple gallstones in the neck of the gallbladder, with positive Tejeda's sign, suggesting acute cholecystitis. Discussed this case with surgeon Dr. Lowery who will admit the patient to the surgical floor and take the patient to surgery hopefully this morning. Patient is currently n.p.o. She was treated with Dilaudid and states she feels better. - Vital Signs Vital signs: Temp Pulse Resp BP Pulse Ox 97.5 F 55 L 16 122/66 97 06/27/19 04:10 06/27/19 04:10 06/27/19 04:10 06/27/19 04:10 06/27/19 04:10 - Laboratory Result Diagrams: 06/26/19 23:44 06/26/19 23:44 Laboratory results interpreted by me: 06/26/19 06/26/19 23:36 23:44 Potassium 3.4 L Glucose 121 H Urine Ketones TRACE H Discharge - Discharge Clinical Impression: Cholecystitis Condition: Stable Disposition: ADMITTED INPATIENT Admitting Provider: Surgeon Dr. Lowery Unit Admitted: Surgical Floor
[2019-06-27] MEDS ORDERED: NORMAL SALINE 1000 ML 1,000 ML IV ONE (00:09)
[2019-06-27] MEDS ORDERED: FENTANYL CITRATE INJ/PF 100 MCG/2 ML AMPUL IV ONE ×2 (00:37→01:24)
--- NOTE | 2019-06-27 01:12 | RADIOLOGY REPORT (SQ) ---
EXAM DESCRIPTION: [facility]: US ABDOMEN LIMITED CLINICAL HISTORY: 43 years Female; RUQ pain TECHNIQUE: Right upper quadrant ultrasound was performed. COMPARISON: None. FINDINGS: Exam was technically difficult due to bowel gas and patient discomfort. Pancreas: Visualized portions are unremarkable. Liver: 15 cm long. Portal venous flow is hepatopedal, normal. Gallbladder: Multiple shadowing calculi at the neck. Wall is 2 mm. Positive Tejeda's sign. Transverse diameter 4.5 cm, borderline enlarged. No pericholecystic fluid. Common bile duct: 11 mm. Distal portion is not well visualized. Right kidney: 10.1 cm long. No hydronephrosis. IMPRESSION: 1. Significant distention of the common bile duct (11 mm), suggesting distal common bile duct stone or stricture. 2. Multiple gallstones in the neck of the gallbladder, with positive Tejeda's sign, suggesting acute cholecystitis.
[2019-06-27] MEDS ORDERED: HYDROMORPHONE HCL INJ/PF 2 MG/ML AMPULE IV ONE (01:31)
--- NOTE | 2019-06-27 02:17 | PDOC H&P ---
History of Present Illness Admission Date/PCP: 06/27/19 01:54 DONOVAN ROJASC Patient complains of: abdominal pains History of Present Illness: TANVI PATTERSON is a 43 year old female who has been on a keto diet for the past week and suddenly complained of severe right upper quadrant pains at 7:00 last night associated with nausea. He then went to ED where an ultrasound of the abdomen revealed gallstones with common bile duct about 11 mm. Her white count is normal and her LFTs are normal. Denies any fever nor chills Past Medical History Cardiac Medical History: Denies: Coronary Artery Disease, Myocardial Infarction, Hypertension Pulmonary Medical History: Reports: Asthma, Pneumonia Denies: Bronchitis, Chronic Obstructive Pulmonary Disease (COPD) Neurological Medical History: Denies: Seizures Musculoskeltal Medical History: Reports: Arthritis Psychiatric Medical History: Reports: Attention Deficit Hyperactivity Disorder Hematology: Denies: Anemia Past Surgical History Past Surgical History: Reports: Hysterectomy, Orthopedic Surgery - right shoulder, Tonsillectomy, Other - Abdominoplasty with creation of new umbilicus Social History Smoking Status: Never Smoker Family History Family History: Reviewed & Not Pertinent Parental Family History Reviewed: Yes Children Family History Reviewed: No Sibling(s) Family History Reviewed.: No Medication/Allergy Home Medications: Celecoxib [Celebrex] 200 mg PO DAILY 06/27/19 Dextroamphetamine/Amphetamine [Dextroamp-Amphetamin 10 mg Tab] 10 mg PO BID 06/27/19 Estradiol 2 mg PO QAM 06/27/19 Gabapentin 300 mg PO TID 06/27/19 Omeprazole 20 mg PO DAILY 06/27/19 Tizanidine HCl 4 mg PO QHS PRN 06/27/19 Trazodone HCl [Desyrel] 200 mg PO QHS 06/27/19 Allergies/Adverse Reactions: morphine Allergy (Verified 04/17/19 06:36) Urticaria Review of Systems Constitutional: PRESENT: as per HPI Gastrointestinal: PRESENT: abdominal pain, nausea Physical Exam Vital Signs: Temp Pulse Resp BP Pulse Ox 97.7 F 73 16 151/86 H 98 06/26/19 23:38 06/26/19 23:38 06/27/19 01:37 06/27/19 01:37 06/27/19 01:37 Intake & Output 06/25/19 06/26/19 06/27/19 06:59 06:59 06:59 Intake Total 1000 Balance 1000 Weight 80.739 kg General appearance: PRESENT: severe distress Head exam: PRESENT: atraumatic Eye exam: PRESENT: conjunctiva pink Mouth exam: PRESENT: moist Neck exam: PRESENT: full ROM Respiratory exam: PRESENT: clear to auscultation justine Cardiovascular exam: PRESENT: RRR Pulses: PRESENT: normal radial pulses Vascular exam: PRESENT: normal capillary refill GI/Abdominal exam: PRESENT: soft, tenderness - Epigastrium and right upper quad rant Rectal exam: PRESENT: deferred Neurological exam: PRESENT: alert, oriented to person, oriented to place, oriented to time, oriented to situation Psychiatric exam: PRESENT: appropriate affect Skin exam: PRESENT: normal color, warm Results Laboratory Results: 06/26/19 23:44 06/26/19 23:44 06/26/19 06/26/19 06/26/19 23:36 23:44 23:44 WBC 5.5 RBC 4.28 Hgb 12.9 Hct 36.8 MCV 86 MCH 30.0 MCHC 34.9 RDW 12.3 Plt Count 272 Seg Neutrophils % 48.7 Sodium 137.0 Potassium 3.4 L Chloride 104 Carbon Dioxide 22 Anion Gap 11 BUN 12 Creatinine 0.71 Est GFR ( Amer) > 60 Glucose 121 H Calcium 9.4 Total Bilirubin 0.4 AST 27 Alkaline Phosphatase 60 Total Protein 6.3 Albumin 3.7 Lipase 157.3 Urine Color YELLOW Urine Appearance CLEAR Urine pH 6.0 Ur Specific [place] 1.011 Urine Protein NEGATIVE Urine Glucose (UA) NEGATIVE Urine Ketones TRACE H Urine Blood NEGATIVE Urine Nitrite NEGATIVE Ur Leukocyte Esterase NEGATIVE Urine WBC (Auto) 1 Urine RBC (Auto) 0 Impressions: Abdomen Ultrasound 06/27/19 00:05 IMPRESSION: 1. Significant distention of the common bile duct (11 mm), suggesting distal common bile duct stone or stricture. 2. Multiple gallstones in the neck of the gallbladder, with positive Tejeda's sign, suggesting acute cholecystitis. Assessment & Plan - Diagnosis (1) Cholelithiasis Is this a current diagnosis for this admission?: Yes (2) Cholecystitis Is this a current diagnosis for this admission?: Yes - Time Time Spent: 30 to 50 Minutes - Inpatient Certification Medical Necessity: Need for Pain Control, Need for IV Antibiotics, Need for Surgery - Plan Summary Plan Summary: 43-year-old female with right upper quadrant pains radiating to the back and epigastric areas started around 7 PM last night after being on a keto diet for the past week. Denies fever or chills. She is tender in the epigastric and right upper quadrant. Ultrasound of the abdomen revealed gallstones with common bile duct dilated to about 11 mm. Her LFTs and white count are normal. Impression: Cholelithiasis, cholecystitis Plans: Start IV antibiotics and hydrate For laparoscopic cholecystectomy possible cholangiogram
[2019-06-27] MEDS ORDERED: DEXTROSE 50%-WATER 25 GM/50 ML DISP.SYRIN IV PRN ×2 (02:18)
[2019-06-27] MEDS ORDERED: GLUCAGON,HUMAN RECOMB 1 MG INJ SUBCUT PRN (02:18)
[2019-06-27] MEDS ORDERED: ONDANSETRON HCL INJ/PF 4 MG/2 ML SDV IV PRN ×2 (02:18→10:39)
[2019-06-27] MEDS ORDERED: DEXTROSE 40% GEL 15 GM TUBE PO PRN ×2 (02:18)
[2019-06-27] MEDS: DEXTROSE 5%-LACTATED RINGERS 1,000 ML IV PRN ×2 (03:53→21:00)
[2019-06-27] MEDS ORDERED: PIPERACILLIN/TAZOBACTAM 3.375 GM VIAL IV ONE (04:17)
[2019-06-27] MEDS: PIPERACILLIN SODIUM/TAZOBACTAM 3.375 GM in NORMAL SALINE 100 ML IV SCH ×4 (04:38→20:53)
[2019-06-27] MEDS ORDERED: PIPERACILLIN/TAZOBACTAM 3.375 GM VIAL IV PRN (06:00)
[2019-06-27] MEDS: HYDROMORPHONE HCL INJ/PF 2 MG/ML AMPULE IV PRN ×2 (07:57→18:46)
[2019-06-27] MEDS: FAMOTIDINE INJ/PF 20 MG/2 ML SDV IV SCH ×2 (09:02→22:48)
--- NOTE | 2019-06-27 09:29 | Progress Note ---
Provider Note Provider Note: This is a 43-year-old female with right upper quadrant pain and gallstones, admitted for early acute cholecystitis. She has a dilated common bile duct on ultrasound, however her LFTs are normal. I have discussed with her laparoscopic cholecystectomy with intraoperative cholangiogram. She has agreed to this. Ris ks/benefits discussed, informed consent obtained, and all questions answered.
[2019-06-27] MEDS ORDERED: HYDROMORPHONE HCL INJ/PF 2 MG/ML AMPULE ONE ×2 (09:37→10:55)
[2019-06-27] MEDS ORDERED: MIDAZOLAM 2 MG/2 ML INJ ONE (09:37)
[2019-06-27] MEDS ORDERED: PROPOFOL INJ 200 MG/20 ML VIAL IV ONE (09:37)
[2019-06-27] MEDS ORDERED: GLUCAGON,HUMAN RECOMB 1 MG INJ ONE (09:50)
[2019-06-27] MEDS ORDERED: BUPIVACAINE HCL 0.25 % INJ/PF (2.5 MG/1 ML) 30 ML VIAL ONE (09:50)
[2019-06-27] MEDS ORDERED: METOCLOPRAMIDE HCL INJ/PF 10 MG/2 ML SDV ONE (10:26)
[2019-06-27] MEDS ORDERED: GLYCOPYRROLATE 1 MG/5 ML VIAL ONE (10:26)
[2019-06-27] MEDS ORDERED: KETOROLAC TROMETHAMINE 60 MG/2 ML SDV ONE (10:26)
[2019-06-27] MEDS ORDERED: LIDOCAINE 2% INJ-PF (20 MG/ML) 2 ML AMPUL ONE (10:26)
[2019-06-27] MEDS ORDERED: NEOSTIGMINE METHYLSULFATE 10 MG/10 ML VIAL ONE (10:26)
[2019-06-27] MEDS ORDERED: ROCURONIUM BROMIDE INJ 50 MG/5 ML VIAL IV ONE (10:26)
[2019-06-27] MEDS ORDERED: ONDANSETRON HCL INJ/PF 4 MG/2 ML SDV ONE (10:26)
[2019-06-27] MEDS ORDERED: DEXAMETHASONE SOD PHOSPHATE INJ 4 MG/1 ML VIAL ONE (10:26)
[2019-06-27] MEDS ORDERED: DIPHENHYDRAMINE HCL 50 MG/ML VIAL IV PRN (10:39)
[2019-06-27] MEDS ORDERED: FENTANYL CITRATE INJ/PF 100 MCG/2 ML AMPUL IV PRN ×3 (10:39)
[2019-06-27] MEDS ORDERED: OXYCODONE-ACETAMINOPHEN 5-325 MG TABLET PO PRN ×2 (10:39)
[2019-06-27] MEDS ORDERED: PROMETHAZINE HCL INJ 25 MG/1 ML VIAL IV PRN ×2 (10:39)
[2019-06-27] MEDS ORDERED: BUPIVACAINE HCL 0.25 % INJ/PF (2.5 MG/1 ML) 30 ML VIAL INJ ONE (10:43)
[2019-06-27] MEDS ORDERED: MEPERIDINE HCL/PF INJ 25 MG/1 ML DISP.SYRIN ONE (12:13)
[2019-06-27] MEDS: MEPERIDINE HCL/PF INJ 25 MG/1 ML DISP.SYRIN IV PRN ×2 (12:15→12:33)
[2019-06-27] MEDS ORDERED: FENTANYL CITRATE INJ/PF 100 MCG/2 ML AMPUL ONE (12:26)
[2019-06-27] MEDS: FENTANYL CITRATE INJ/PF 100 MCG/2 ML AMPUL ONE ×2 (12:27→12:35)
[2019-06-27] MEDS ORDERED: INFLUENZA QUAD (6MOS+) 2019-20 VAC 0.5 ML SYR IM ONE (13:00)
[2019-06-27] MEDS ORDERED: PROMETHAZINE HCL INJ 25 MG/1 ML VIAL ONE (14:03)
--- NOTE | 2019-06-27 14:15 | RADIOLOGY REPORT (SQ) ---
EXAM DESCRIPTION: CHOLANGIOGRAM OPERATIVE COMPLETED DATE/TIME: 06/27/2019 2:04 pm REASON FOR STUDY: CHOLANGIOGRAM IN OR COMPARISON: None. FLUOROSCOPY TIME: 4.2 minutes Spot images saved to PACS. TECHNIQUE: Intra-operative images acquired during surgical procedure to evaluate progress. NUMBER OF IMAGES: 5 LIMITATIONS: None. FINDINGS: Fluoroscopy was provided for intraoperative procedure. Please refer to the operative repo rt for further discussion. IMPRESSION: IMAGE(S) OBTAINED DURING PROCEDURE. COMMENT: Quality ID [id number]: Final reports for procedures using fluoroscopy that document radiation exp osure indices, or exposure time and number of fluorographic images (if radiation exposure indices are not available) Please consult full operative report of the attending physician for description of the procedure. TECHNICAL DOCUMENTATION: JOB ID: [id number] [employer]- All Rights Reserved Reading location - IP/workstation name: [email or web address]
[2019-06-27] MEDS: KETOROLAC TROMETHAMINE INJ/PF 30 MG/1 ML SDV IV SCH ×2 (14:56→22:51)
[2019-06-27] MEDS: HYDROCODONE/ACETAMINOPHEN 10-325 MG TABLET PO PRN (16:41)
--- NOTE | 2019-06-27 23:52 | Operative Report ---
Nonrecallable Operative Report DATE OF SURGERY: 06/27/19 PREOPERATIVE DIAGNOSIS: Acute cholecystitis POSTOPERATIVE DIAGNOSIS: 1. Acute cholecystitis. 2. Choledocholithiasis OPERATION: 1. Laparoscopic cholecystectomy. 2. Intraoperative cholangiogram. 3. Trans-cystic common bile duct exploration with extraction of distal common bile duct stones SURGEON: ALEXANDRA SANABRIA ANESTHESIA: GA TISSUE REMOVED OR ALTERED: Gallbladder COMPLICATIONS: None apparent ESTIMATED BLOOD LOSS: Minimal PROCEDURE: Drains/implants: None. Procedure in detail: After informed consent was obtained, the patient was brought into the operating room and laid in the supine position. The area of the abdomen was prepped and draped in a normal sterile fashion. A supraumbilical incision was created with a 15 blade scalpel. The incision was deepened using sharp and blunt dissection. The linea alba fascia was incised sharply, the abdomen was entered sharply. The balloon trocar was inserted, and pneumoperitoneum was achieved. A subxiphoid 5 mm port was placed under direct laparoscopic visualization. 2 more 5 mm ports were placed in the right upper quadrant in similar fashion. Atraumatic graspers were placed through the 5 mm ports. The gallbladder was retracted cephalad and laterally. The gallbladder was tense and distended. In order to better manipulate the gallbladder, aspiration of the gallbladder was felt necessary. A small cholecystotomy was created on the dome of the gallbladder and a large amount of thick, dark green bile was suctioned from the gallbladder. Manipulation of the gallbladder was much easier after decompression. Dissection was begun in the triangle of [place]. The cystic duct and cystic artery were fully visualized and skeletonized, seeing the liver through the triangle. The cystic artery was clipped and cut with laparoscopic instruments. A small incision was created in the infundibulum, which was full of stones. Multiple stones were extracted from the infundibulum. These were removed from the patient. The cystic duct was milked, and multiple stones were extracted from the cystic duct. Next, the Arrow cholangiogram catheter was inserted into the cystic duct. A cholangiogram was shot. Omnipaque filled the common bile duct, common hepatic duct, right and left hepatic ducts, and their radicles. The ampulla of Vater was visualized. No Omnipaque was seen entering into the duodenum. Glucagon was given, which did not help. Next a balloon sweep was attempted. The catheter was directed down the cystic and common bile duct to the ampulla. The catheter passed through the ampulla easily. Multiple balloon sweeps were then performed. Several small stones were seen in the distal common bile duct. The stones were extracted via the balloon sweep technique. Another cholangiogram was shot, showing contrast filling the duodenum. Once this was identified, attention was turned to placement of cystic duct clips. The cystic duct was clipped and cut with laparoscopic instruments. The gallbladder was removed from the liver using Bovie electrocautery. The gallbladder was then placed into an Endo Catch bag and pulled out through the umbilicus. The camera was reinserted. The abdomen was copiously irrigated and suctioned until the effluent was clear. The hilum was then inspected. The hilum was found to be free of any leakage of blood or bile. Once this was confirmed, the 5 mm trochars were removed under direct laparoscopic visualization. The supraumbilical trocar was removed, and pneumoperitoneum was relieved. The supraumbilical fascia was closed using 0 Ethibond suture in [id number] fashion. The overlying skin was closed using 4-0 Vicryl Rapide suture in subcuticular fashion. Dressings were placed, and the procedure was concluded. All sponge, instrument, and needle counts were correct x2. Condition: Stable.
[2019-06-28] MEDS: HYDROCODONE/ACETAMINOPHEN 10-325 MG TABLET PO PRN ×2 (03:48→08:55)
[2019-06-28] MEDS: PIPERACILLIN SODIUM/TAZOBACTAM 3.375 GM in NORMAL SALINE 100 ML IV SCH ×2 (03:57→09:31)
[2019-06-28] MEDS: HYDROMORPHONE HCL INJ/PF 2 MG/ML AMPULE IV PRN (04:31)
[2019-06-28 05:56] LABS: ABSOLUTE LYMPHOCYTES (AUTO) 1.4 10^3/uL (0.5-4.7); ABSOLUTE MONOCYTES (AUTO) 0.6 10^3/uL (0.1-1.4); ABSOLUTE NEUT (AUTO) 4.7 10^3/uL (1.7-8.2); BASOPHILS % (AUTO) 0.3 % (0-2); EOSINOPHILS % (AUTO) 0.2 % (0-6); HEMATOCRIT 35.9 % (36.0-47.0); HEMOGLOBIN 12.2 g/dL (12.0-15.5); MEAN CORPUSCULAR HEMOGLOBIN 29.5 pg (27.0-33.4); MEAN CORPUSCULAR HGB CONC 34.1 g/dL (32.0-36.0); MEAN CORPUSCULAR VOLUME 86 fl (80-97); MONOCYTES % (AUTO) 9.3 % (3-13); PLATELET COUNT 283 10^3/uL (150-450); RED BLOOD COUNT 4.15 10^6/uL (3.72-5.28); RED CELL DISTRIBUTION WIDTH 12.4 % (11.5-14.0); SEGMENTED NEUTROPHILS % (AUTO) 69.2 % (42-78); TOTAL CELLS COUNTED % (AUTO) 100 %; WHITE BLOOD COUNT 6.9 10^3/uL (4.0-10.5)
[2019-06-28 06:21] LABS: ALBUMIN 3.5 g/dL (3.5-5.0); ALKALINE PHOSPHATASE 54 U/L (38-126); ANION GAP 9 (5-19); ASPARTATE AMINO TRANSFERASE 34 U/L (14-36); BILIRUBIN,DIRECT 0.1 mg/dL (0.0-0.4); BILIRUBIN,TOTAL 0.5 mg/dL (0.2-1.3); BLOOD UREA NITROGEN 3 mg/dL (7-20); CALCIUM 8.8 mg/dL (8.4-10.2); CARBON DIOXIDE 28 mmol/L (22-30); CHLORIDE 104 mmol/L (98-107); GLUCOSE 106 mg/dL (75-110); POTASSIUM 3.7 mmol/L (3.6-5.0); TOTAL PROTEIN 6.2 g/dL (6.3-8.2)
[2019-06-28] MEDS: KETOROLAC TROMETHAMINE INJ/PF 30 MG/1 ML SDV IV SCH ×2 (06:47→07:43)
[2019-06-28] MEDS: DEXTROSE 5%-LACTATED RINGERS 1,000 ML IV PRN (07:44)
[2019-06-28] MEDS: FAMOTIDINE INJ/PF 20 MG/2 ML SDV IV SCH (09:28)
[2019-06-28 09:55] VITALS: BP 122/66
== END 2019-06-28 11:03 | disposition home or self-care (01) ==
LOC: ER 23:24 → EH 06-27 01:54 → INTOOBSV 06-27 01:54 → 4S 06-27 03:25
PROVIDERS: ADMIT Surgery; ATTEND Surgery
PROC: BF131ZZ Fluoroscopy of Gallbladder and Bile Ducts using Low Osmolar Contrast (ICD-10-PCS; 2019-06-27)
PROC: 0FC94ZZ Extirpation of Matter from Common Bile Duct, Percutaneous Endoscopic Approach (ICD-10-PCS; 2019-06-27)
PROC: 0FT44ZZ Resection of Gallbladder, Percutaneous Endoscopic Approach (ICD-10-PCS; principal; 2019-06-27 13:00)
PROC: 3E02340 Introduction of Influenza Vaccine into Muscle, Percutaneous Approach (ICD-10-PCS; 2019-06-28)
DX: K80.10 Calculus of gallbladder with chronic cholecystitis without obstruction (principal); M19.90 Unspecified osteoarthritis, unspecified site; Z23 Encounter for immunization; Z98.890 Other specified postprocedural states; Z90.49 Acquired absence of other specified parts of digestive tract; Z90.710 Acquired absence of both cervix and uterus
CPT/HCPCS: 99285; 96361; 96374; 96375; 36415 ×2; 83690; 85025 ×2; 81025; 80053 ×2; 81001; 88304 ×2; 74300; 76705; 90686; 00790; 47564; J2250; J3490 ×3; J1100; J1885 ×3; J3010; J1610; J2175; J2765; J2710; J1170 ×2; J2550; J2405; J7121 ×2; J7050 ×2; J7030; J2704; S0028; J2543 ×2; 790; G0378

== ENCOUNTER 2019-07-01 13:17 | Emergency (ER) | payer OTHER, MEDICARE ==
[2019-07-01] MEDS ORDERED: DIPHENHYDRAMINE HCL 50 MG/ML VIAL IV ONE (14:26)
[2019-07-01 14:27] LABS: ABSOLUTE EOSINOPHILS # (AUTO) 0.1 10^3/uL (0.0-0.6); ABSOLUTE LYMPHOCYTES (AUTO) 1.3 10^3/uL (0.5-4.7); ABSOLUTE MONOCYTES (AUTO) 0.4 10^3/uL (0.1-1.4); ABSOLUTE NEUT (AUTO) 2.5 10^3/uL (1.7-8.2); BASOPHILS % (AUTO) 0.7 % (0-2); EOSINOPHILS % (AUTO) 2.2 % (0-6); HEMATOCRIT 36.5 % (36.0-47.0); HEMOGLOBIN 12.5 g/dL (12.0-15.5); LYMPHOCYTES % (AUTO) 29.9 % (13-45); MEAN CORPUSCULAR HEMOGLOBIN 29.5 pg (27.0-33.4); MEAN CORPUSCULAR HGB CONC 34.1 g/dL (32.0-36.0); MEAN CORPUSCULAR VOLUME 87 fl (80-97); PLATELET COUNT 282 10^3/uL (150-450); RED BLOOD COUNT 4.23 10^6/uL (3.72-5.28); RED CELL DISTRIBUTION WIDTH 12.1 % (11.5-14.0); SEGMENTED NEUTROPHILS % (AUTO) 57.2 % (42-78); TOTAL CELLS COUNTED % (AUTO) 100 %; WHITE BLOOD COUNT 4.4 10^3/uL (4.0-10.5)
[2019-07-01 14:36] LABS: ALBUMIN 3.7 g/dL (3.5-5.0); ALKALINE PHOSPHATASE 206 U/L (38-126); ANION GAP 10 (5-19); ASPARTATE AMINO TRANSFERASE 417 U/L (14-36); BILIRUBIN,DIRECT 0.9 mg/dL (0.0-0.4); BILIRUBIN,TOTAL 1.2 mg/dL (0.2-1.3); BLOOD UREA NITROGEN 8 mg/dL (7-20); CALCIUM 9.3 mg/dL (8.4-10.2); CARBON DIOXIDE 24 mmol/L (22-30); CHLORIDE 107 mmol/L (98-107); GLUCOSE 134 mg/dL (75-110); POTASSIUM 4.3 mmol/L (3.6-5.0); TOTAL PROTEIN 6.5 g/dL (6.3-8.2)
[2019-07-01 15:17] LABS: APPEARANCE,URINE CLEAR; BILIRUBIN,URINE NEGATIVE (NEGATIVE); COLOR,URINE AMBER; GLUCOSE, URINE NEGATIVE (NEGATIVE); KETONES,URINE NEGATIVE (NEGATIVE); LEUKOCYTE ESTERASE,URINE NEGATIVE (NEGATIVE); NITRITE,URINE NEGATIVE (NEGATIVE); PROTEIN,URINE NEGATIVE (NEGATIVE); URINE SPECIFIC GRAVITY 1.014; UROBILINOGEN,URINE NEGATIVE mg/dL (<2.0)
[2019-07-01] MEDS ORDERED: PIPERACILLIN/TAZOBACTAM 3.375 GM VIAL IV ONE (15:32)
--- NOTE | 2019-07-01 15:33 | ER Document Report ---
ED GI/ - General Chief Complaint: Abdominal Pain Stated Complaint: ABDOMINAL PAIN Time Seen by Provider: 07/01/19 14:16 Primary Care Provider: BRISEIDA HERNANDEZ FNP-C [Primary Care Provider] - Follow up as needed Information source: Patient Notes: HPI: 44-year-old female who presents today status post cholecystectomy on the with multiple gallstones in the gallbladder as well as the common bile duct with extraction. Patient had an intraoperative cholangiogram performed before and after the extraction. They did believe the retrieved all the stones. Patient states she started to have some more pain again today. Vomiting x1. No fevers. She is slightly itchy. No radiation to the back, chest pain, fevers, or shortness of breath. No aggravating or relieving factors. It did occur however after she ate chili. ROS: See HPI All other review of systems reviewed and otherwise negative Reviewed vital signs and nursing note as charted by RN. PHYSICAL EXAM: CONSTITUTIONAL: Alert and oriented and responds appropriately to questions. Well-appearing; well-nourished HEAD: Normocephalic; atraumatic EYES: Sclerae non-icteric ENT: Normal nose; no rhinorrhea; moist mucous membranes; pharynx without lesions noted NECK: Supple without meningismus; non-tender; no cervical lymphadenopathy, no masses CARD: Regular rate and rhythm; no murmurs; symmetric distal pulses RESP: Normal chest excursion without splinting or tachypnea; breath sounds clear and equal bilaterally; no wheezes, no rhonchi, no rales ABD/GI: Normal bowel sounds; abdominal scars consistent with laparoscopy. Wounds are clean dry and intact. Slight ecchymosis on the right upper quadrant wound. Minimal tenderness to the right upper quadrant without rebound or guarding; no palpable organomegaly or masses BACK: The back appears normal and is non-tender to palpation EXT: Normal ROM in all joints; non-tender to palpation; no edema SKIN: No acute lesions noted NEURO: CN 2-12 intact; 5/5 bilateral upper and lower extremity strength with sensation intact to light touch PSYCH: The patient's mood and manner are appropriate. Grooming and personal hygiene are appropriate. TRAVEL OUTSIDE OF THE [place] IN LAST 30 DAYS: No - Related Data Allergies/Adverse Reactions: morphine Allergy (Verified 04/17/19 06:36) Urticaria fentanyl Adverse Reaction (Intermediate, Verified 07/01/19 18:22) Pruritis Past Medical History - Social History Smoking Status: Former Smoker Frequency of alcohol use: None Drug Abuse: None Family History: Reviewed & Not Pertinent Patient has suicidal ideation: No Patient has homicidal ideation: No - Past Medical History Cardiac Medical History: Denies: Hx Coronary Artery Disease, Hx Heart Attack, Hx Hypertension Pulmonary Medical History: Reports: Hx Asthma, Hx Pneumonia Denies: Hx Bronchitis, Hx COPD Neurological Medical History: Denies: Hx Cerebrovascular Accident, Hx Seizures Musculoskeletal Medical History: Reports Hx Arthritis Psychiatric Medical History: Reports: Hx Anxiety, Hx Attention Deficit Hyperactivity Disorder Denies: Hx Depression Past Surgical History: Reports: Hx Breast Surgery - reduction, Hx Cholecystectomy, Hx Hysterectomy, Hx Orthopedic Surgery - right shoulder, Hx Tonsillectomy, Other - Abdominoplasty with creation of new umbilicus - Immunizations Hx Diphtheria, Pertussis, Tetanus Vaccination: Yes Review of Systems - Review of Systems Constitutional: Chills Physical Exam - Vital signs Vitals: Resp 24 H 07/01/19 13:20 Course - Re-evaluation Re-evalutation: 07/01/19 15:34 Given the history and physical with labs as recorded, I have called the local rahman amna here at this facility. He states since we do not have ERCP capability and no GI coverage, he would like the patient transferred. I will obtain an ultrasound prior to transfer initiation and start the patient on a course of Zosyn. - Vital Signs Vital signs: Temp Pulse Resp BP Pulse Ox 98.4 F 16 95/83 L 97 07/01/19 17:40 07/01/19 17:03 07/01/19 17:03 07/01/19 17:03 - Laboratory Result Diagrams: 07/01/19 13:26 07/01/19 13:26 Laboratory results interpreted by me: 07/01/19 13:26 Glucose 134 H Direct Bilirubin 0.9 H AST 417 H Alkaline Phosphatase 206 H Discharge - Discharge Clinical Impression: Choledocholithiasis Condition: Fair Disposition: [facility] Referrals: BRISEIDA HERNANDEZ FNP-C [Primary Care Provider] - Follow up as needed
[2019-07-01] MEDS ORDERED: FENTANYL CITRATE INJ/PF 100 MCG/2 ML AMPUL IV ONE (17:03)
--- NOTE | 2019-07-01 17:03 | RADIOLOGY REPORT (SQ) ---
EXAM DESCRIPTION: U/S ABDOMEN LIMITED W/O DOP COMPLETED DATE/TIME: 07/01/2019 4:16 pm REASON FOR STUDY: 1; eval common bile duct COMPARISON: 06/27/2019. TECHNIQUE: Dynamic and static grayscale images acquired of the abdomen and recorded on PACS. Additio nal selected color Doppler and spectral images recorded. LIMITATIONS: None. FINDINGS: PANCREAS: The head and tail of the pancreas are obscured by bowel gas. No definite abnorm ality in of the body of the pancreas. LIVER: The liver demonstrates normal echogenicity measuring 14.6 cm. LIVER VASCULATURE: Normal directional flow of the main portal vein and hepatic veins. GALLBLADDER: Status post cholecystectomy. ULTRASOUND-DETECTED WINSLOW'S SIGN: Negative. INTRAHEPATIC DUCTS AND COMMON DUCT: CBD measures 8 mm. Intrahepatic ducts normal caliber. No filling defects. INFERIOR VENA CAVA: Normal flow. AORTA: The proximal aorta measures 2 cm in AP diameter. The mid abdominal aorta measures 1.6 cm in A P diameter and distally 0.9 cm. RIGHT KIDNEY: The right kidney measures 10.5 cm in length demonstrating normal echogenicity. PERITONEAL AND RIGHT PLEURAL SPACE: No ascites or effusions. IMPRESSION: Interval cholecystectomy. Interval decrease in size of common bile duct measuring 8 mm. TECHNICAL DOCUMENTATION: JOB ID: [id number] [employer]- All Rights Reserved Reading location - IP/workstation name: [email or web address]
[2019-07-01] MEDS ORDERED: HYDROMORPHONE HCL INJ/PF 2 MG/ML AMPULE IV ONE ×2 (17:05→19:07)
[2019-07-01] MEDS ORDERED: NORMAL SALINE 1000 ML 1,000 ML IV PRN (17:24)
[2019-07-01 19:29] VITALS: BP 120/90
== END 2019-07-01 19:20 | disposition short-term general hospital (02) ==
LOC: ER 13:17
DX: K80.50 Calculus of bile duct without cholangitis or cholecystitis without obstruction (principal); R11.10 Vomiting, unspecified; Z90.710 Acquired absence of both cervix and uterus; Z90.49 Acquired absence of other specified parts of digestive tract; Z88.6 Allergy status to analgesic agent
CPT/HCPCS: 96376; 99285; 96361; 96374; 96375; 36415; 83690; 85025; 81025; 80053; 81001; 76705; J1200; J1170; J7030; J2543